=== PATIENT | male | born 1950 | race Caucasian/White ===

== ENCOUNTER 2022-08-18 16:48 | Emergency (ER) | payer BC, OTHER ==
[~2022-08-18] VITALS: Ht 167.6 cm; Wt 63.5 kg
[2022-08-18 17:12] VITALS: BP 123/80
--- NOTE | 2022-08-18 17:25 | NUR ---
PT AMBULATED TO BED 11. URINE COLLECTED
[2022-08-18] MEDS ORDERED: cefTRIAXone 500 MG in LIDOCAINE MPF 1% 1 ML IM ONE (17:45)
[2022-08-18 18:09] LABS: BILIRUBIN,URINE 1+ (NEGATIVE); BLOOD, URINE 3+ (NEGATIVE); COLOR,URINE YELLOW (YELLOW); LEUKOCYTE ESTERASE ,URINE 1+ (NEGATIVE); NITRITE, URINE NEGATIVE (NEGATIVE); UGLUCOSE NEGATIVE (NEGATIVE)
[2022-08-18 18:10] LABS: APPEARANCE,URINE HAZY (CLEAR)
[2022-08-18 18:19] LABS: WBC,URINE TOO MANY TO COUNT /HPF (0-5)
[2022-08-18 18:20] LABS: RBC,URINE 50-80 /HPF (0-5)
[2022-08-18] MEDS ORDERED: NACL 0.9% 1,000 ML IV ONE (18:50)
[2022-08-18] MEDS ORDERED: cefTRIAXone 1,000 MG VIAL ONE (18:51)
[2022-08-18] MEDS ORDERED: DOXY-690 PO (18:51)
[2022-08-18] MEDS ORDERED: LIDOCAINE MPF 1% 5 ML ONE (18:51)
[2022-08-18] MEDS ORDERED: CIPR500T4 PO (19:02)
[2022-08-18 19:13] VITALS: BP 126/82
--- NOTE | 2022-08-19 14:22 | NUR ---
called for gonorrhea results, number states phone number is no longer in service. per md [place], pt was already treated with IM but suggests partner should be tested. no other number on file to contact.
--- NOTE | 2022-08-21 19:13 | NUR ---
LATE ENTRY. RECEIVED POSITIVE GONORRHEA RESULT. FORM GIVEN TO DR PAGAN, TREATMENT APPROPRIATE. FORM GIVEN TO INFECTION CONTROL AND PLACED IN BINDER
== END 2022-08-18 19:03 | disposition home or self-care (01) ==
LOC: MED 16:48
DX: N34.2 Other urethritis (principal); N39.0 Urinary tract infection, site not specified; Z79.899 Other long term (current) drug therapy
CPT/HCPCS: 81001; 87086; 87491; 96372; 99283; J0696; J2001

== ENCOUNTER 2022-08-19 16:28 | Emergency (ER) | payer BC, OTHER ==
[~2022-08-19] VITALS: Ht 165.1 cm; Wt 59.0 kg
[~2022-08-19 16:28] MED LIST: CIPR500T4 PO; DOXY-690 PO
[2022-08-19 16:43] VITALS: BP 139/81
--- NOTE | 2022-08-19 17:01 | NUR ---
Patient discharged with v/s stable. Written and verbal after care instructions given and explained. Patient verbalized understanding. Ambulatory with steady gait. All questions addressed prior to discharge. Advised to follow up with PMD.
== END 2022-08-19 17:01 | disposition home or self-care (01) ==
LOC: MED 16:28
DX: R19.7 Diarrhea, unspecified (principal); T36.4X5A Adverse effect of tetracyclines, initial encounter; Y92.89 Other specified places as the place of occurrence of the external cause
CPT/HCPCS: 99282